=== PATIENT | female | born 1980 | race Caucasian/White ===

== ENCOUNTER 2018-04-05 11:05 | Emergency (ER) | payer OTHER ==
[~2018-04-05] VITALS: Ht 172.7 cm; Wt 60.8 kg
[2018-04-05] MEDS ORDERED: KEFLEX500 MG PO (11:46)
== END 2018-04-05 11:54 | disposition home or self-care (01) ==
LOC: ED 11:05
DX: N30.01 Acute cystitis with hematuria (principal)
CPT/HCPCS: 81001; 84703; 99283

== ENCOUNTER 2019-09-16 21:07 | Inpatient (IN) | payer OTHER ==
[~2019-09-16] VITALS: Ht 171.5 cm; Wt 77.0 kg
[~2019-09-16 21:07] MED LIST: KEFLEX500 MG PO
[2019-09-16] MEDS ORDERED: VITAFOL-OB+DHA1 EACH PO (23:52)
--- NOTE | 2019-09-17 09:47 | PR ---
[facility] [address] [facility] [place], [place] [address] Signed PP Progress Notes Datetime Report Generated by CPCar: 09/17/2019 09:47 SUBJECTIVE: [id number] Pain: Within normal limits Vital Signs: [id number] Vital Signs: Reviewed; Within Normal Limits EXAM: [id number] Cardiovascular: Not Done Respiratory: Not Done Abdomen/Uterus: Abnormal Lochia: Normal Vulva/Perineum: Not Done Breasts: Not Done CVA Tenderness: Not Done Extremities: Normal Incision: Not Applicable Progress: Normal Exam Comments: Fundus firm, NT @ U-1. H/H 12.2/34.6, WBC 10.4, plat 133k IMPRESSION/PLAN/PROCEDURES: [id number] Impression: Normal progression Plan: Continue present management Procedures: None Progress Notes: Doing well. Signing Physician: Laurence Decker MD Copies: ~ *Electronically Signed* 09/17/19 0947 LAURENCE DECKER MD PATIENT NAME: SENTHIL HILL PROGRESS NOTE DATE OF : 84 PHYSICIAN: LAURENCE DECKER MD RPT #: [id number] REPORT IS CONFIDENTIAL AND NOT TO BE RELEASED WITHOUT AUTHORIZATION
--- NOTE | 2019-09-18 08:30 | PR ---
[facility] [address] [facility] [place] [address] Signed PP Progress Notes Datetime Report Generated by CPCar: 09/18/2019 08:30 SUBJECTIVE: [id number] Pain: Within normal limits Vital Signs: [id number] Vital Signs: Reviewed; Within Normal Limits EXAM: [id number] Cardiovascular: Not Done Respiratory: Not Done Abdomen/Uterus: Abnormal Lochia: Normal Vulva/Perineum: Not Done Breasts: Not Done CVA Tenderness: Not Done Extremities: Normal Incision: Not Applicable Progress: Normal Exam Comments: Fundus firm, NT @ U-1. IMPRESSION/PLAN/PROCEDURES: [id number] Impression: Normal progression Plan: Discharge Procedures: None Progress Notes: Doing well. She is ready for D/C. Signing Physician: Laurence Decker MD Copies: ~ *Electronically Signed* 09/18/19 0830 LAURENCE DECKER MD PATIENT NAME: SENTHIL HILL PROGRESS NOTE DATE OF : 84 PHYSICIAN: LAURENCE DECKER MD RPT #: [id number] REPORT IS CONFIDENTIAL AND NOT TO BE RELEASED WITHOUT AUTHORIZATION
== END 2019-09-18 11:15 | disposition home or self-care (01) | DRG 807 ==
LOC: FBCO 21:07 → FBC 22:30
PROVIDERS: ADMIT Obstetrics & Gynecology
PROC: 10E0XZZ Delivery of Products of Conception, External Approach (ICD-10-PCS; principal; 2019-09-16)
PROC: 10907ZC Drainage of Amniotic Fluid, Therapeutic from Products of Conception, Via Natural or Artificial Opening (ICD-10-PCS; 2019-09-16)
DX: O62.3 Precipitate labor (principal); Z37.0 Single live birth; Z3A.38 38 weeks gestation of pregnancy; O69.81X0 Labor and delivery complicated by cord around neck, without compression, not applicable or unspecified; O69.2XX0 Labor and delivery complicated by other cord entanglement, with compression, not applicable or unspecified
CPT/HCPCS: 36415; 59025; 85027; 99213; A9270; J2590

== ENCOUNTER 2021-01-30 16:48 | Inpatient (IN) | payer OTHER ==
[~2021-01-30 16:48] MED LIST changes: +VITAFOL-OB+DHA1 EACH PO
--- NOTE | 2021-01-30 17:20 | NUR ---
RT COLLECTED COVID 19 SWAB WITH NO COMPLICATIONS. RT USED THE CEPHEID RAPID TEST THROUGH IN HOUSE LAB PER DR REQUEST AT THIS TIME.
--- NOTE | 2021-01-30 18:50 | PR ---
[facility] [address] [facility] [place], [place] [address] Signed Progress Notes IP Datetime Report Generated by CPN: 01/30/2021 18:50 PROGRESS NOTES: [id number] Impression: Normal Progression of Labor Procedures: Sterile Vag Exam Plan: Continue Present Management VITAL SIGNS: [id number] Vital Signs: Reviewed; Within Normal Limits EXAM: [id number] Dilatation: 4.5 Effacement: 75 Station: -2 Contractions: q 2 to 3 min MEMBRANES: [id number] Comments: Progressing. Will continue. FETUS A: [id number] FHR Baseline: 140 Variability: Minimal - >Undetectable to <=5bpm Accelerations: 15X15 Decelerations: None FHR Category: Category I Presentation: Vertex Comments on Fetus A: No evidence of metabolic acidosis FETUS B: [id number] Signing Physician: Laurence Decker MD Copies: ~ *Electronically Signed* 01/30/21 185 LAURENCE DECKER MD PATIENT NAME: SENTHIL HILL PROGRESS NOTE DATE OF : 84 PHYSICIAN: LAURENCE DECKER MD RPT #: [id number] REPORT IS CONFIDENTIAL AND NOT TO BE RELEASED WITHOUT AUTHORIZATION
--- NOTE | 2021-01-30 20:10 | PR ---
[facility] [address] [facility] [place], [place] [address] Signed Progress Notes IP Datetime Report Generated by CPN: 01/30/2021 20:10 PROGRESS NOTES: [id number] Impression: Normal Progression of Labor Procedures: Sterile Vag Exam Plan: Continue Present Management VITAL SIGNS: [id number] Vital Signs: Reviewed; Within Normal Limits EXAM: [id number] Dilatation: 5.0 Effacement: 90 Station: -2 Contractions: q 2 to 3 min MEMBRANES: [id number] Comments: Progressing. Will continue close observation of FHTs. FETUS A: [id number] FHR Baseline: 140 Variability: Minimal - >Undetectable to <=5bpm Accelerations: 15X15 Decelerations: None FHR Category: Category I Presentation: Vertex Comments on Fetus A: No evidence of metabolic acidosis FETUS B: [id number] Signing Physician: Laurence Decker MD Copies: ~ *Electronically Signed* 01/30/212009 LAURENCE DECKER MD PATIENT NAME: SERGIOSENTHIL LYNN PROGRESS NOTE DATE OF : 84 PHYSICIAN: LAURENCE DECKER MD RPT #: [id number] REPORT IS CONFIDENTIAL AND NOT TO BE RELEASED WITHOUT AUTHORIZATION
--- NOTE | 2021-01-31 10:30 | PR ---
[facility] [address] [facility] [place], [place] [address] Signed PP Progress Notes Datetime Report Generated by CPN: 01/31/2021 10:30 SUBJECTIVE: [id number] Pain: Within Normal Limits Nausea/Vomiting: Denies Vital Signs: [id number] Vital Signs: Reviewed; Within Normal Limits Cardiovascular: Not Done Respiratory: Not Done Abdomen/Uterus: Abnormal Lochia: Normal Vulva/Perineum: Not Done Breasts: Not Done CVA Tenderness: Not Done Extremities: Normal Incision: Not Applicable Progress: Normal Exam Comments: Fundus firm, NT @ U-2. H/H 12.3/35.8, WBC 8.7, plat 156k IMPRESSION/PLAN/PROCEDURES: [id number] Impression: Normal Progression Plan: Discharge Procedures: None Progress Notes: Doing well. She is ready for D/C tonight. Signing Physician: Laurence Decker MD Copies: ~ *Electronically Signed* 01/31/21 1030 LAURENCE DECKER MD PATIENT NAME: SENTHIL HILL PROGRESS NOTE DATE OF : 84 PHYSICIAN: LAURENCE DECKER MD RPT #: [id number] REPORT IS CONFIDENTIAL AND NOT TO BE RELEASED WITHOUT AUTHORIZATION
== END 2021-01-31 22:17 | disposition home or self-care (01) | DRG 807 ==
LOC: FBCO 16:48 → FBC 17:08
PROVIDERS: ADMIT Obstetrics & Gynecology; ATTEND Obstetrics & Gynecology
PROC: 10E0XZZ Delivery of Products of Conception, External Approach (ICD-10-PCS; principal; 2021-01-30)
PROC: 10907ZC Drainage of Amniotic Fluid, Therapeutic from Products of Conception, Via Natural or Artificial Opening (ICD-10-PCS; 2021-01-30)
DX: O80 Encounter for full-term uncomplicated delivery (principal); Z37.0 Single live birth; Z68.38 Body mass index [BMI] 38.0-38.9, adult; Z20.822 Contact with and (suspected) exposure to COVID-19
CPT/HCPCS: 85027; A9270; C9803; J2590; J7121; U0003

== ENCOUNTER 2024-12-08 07:00 | Day surgery (SDC) | payer OTHER ==
[~2024-12-08] VITALS: Ht 172.7 cm; Wt 54.0 kg
[~2024-12-08 07:00] MED LIST changes: +BIOTIN10000 MC1 PO; +BUPROPION XL450 MG PO; +IBLOOD GLUCOSE TEST STRIP 1 EA TEST VI PRN; +LACTATED RINGER'S 1,000 ML IV SCH; +LIDOCAINE HCL 1% 5 ML SDV INJ ONE; +PROBIOTIC1 EAC2 PO; +ZYRTEC10 MG PO
[2024-12-08 07:08] VITALS: BP 106/50
--- NOTE | 2024-12-08 07:25 | NUR ---
CODY COATES TO BE CALLED FOR [facility].
--- NOTE | 2024-12-08 07:58 | NUR ---
VISITED DURING SPIRITUAL CARE ROUNDS. PT EXHIBITED SIGNS OF ANXIETY, NERVOUSNESS. COMPUTER DISCOVERY TEACHER PROVIDED ANXIETY CONTAINMENT, FACILTIATED PROCESSING OF EMOTIONS, PROVIDED SUPPORTIVE PRESENCE, PRAYER. PT NOTICEABLY LESS ANXIOUS, EXPRESSED GRATITUDE, RELIEF.
[2024-12-08] MEDS ORDERED: LIDOCAINE HCL 2% 5 ML SDV ONE (08:19)
[2024-12-08 13:34] VITALS: BP 105/66
--- NOTE | 2024-12-08 13:43 | NUR ---
12/08/24 [facility]3 Tamanna Edmond 0913: PATIENT ARRIVED TO DAY SURGERY UNIT UNRESPONSIVE, BUT BREATHING SPONTANEOUSLY. 0925: PATIENT AWAKENED WITH VOICE AND TOUCH. DENIES PAIN. 40: DISCHARGE INSTRUCTIONS GIVEN TO PATIENT. PATIENT GETTING DRESSED. 0957: IV DC'D WNL. TIP INTACT. DRESSING APPLIED. PATIENT DISCHARGED TO HOME VIA WHEELCHAIR WITH MOTHER IN LAW.
--- NOTE | 2024-12-14 14:19 | PATH ---
[facility] [address] [place], [place] [address] Signed SPECIMEN(S): A ANTRUM BIOPSY SPECIMEN(S): B GE JUNCTION @ 41 SPECIMEN(S): C ESOPHAGEAL BIOPSY @ 40 SPECIMEN(S): D ESOPHAGEAL BIOPSY @ 35 SPECIMEN(S): E ESOPHAGEAL BIOPSY @ 30 SPECIMEN(S): F ESOPHAGEAL BIOPSY @ 25 SPECIMEN(S): G ESOPHAGEAL BIOPSY @ 20 SPECIMEN SOURCE: A. ANTRUM BIOPSY B. GE JUNCTION @ 41 C. ESOPHAGEAL BIOPSY @ 40 D. ESOPHAGEAL BIOPSY @ 35 E. ESOPHAGEAL BIOPSY @ 30 F. ESOPHAGEAL BIOPSY @ 25 G. ESOPHAGEAL BIOPSY @ 20 CLINICAL HISTORY: Dysphagia. A) rule out H. pylori. C-G) rule out eosinophilic esophagitis FINAL PATHOLOGIC DIAGNOSIS: A. Stomach, antrum, biopsy: - Gastric antral-type mucosa. - Negative for chronic, acute, and active inflammation. - No H. pylori-like organisms identified on routine HE-stained histologic sections. - Negative for intestinal metaplasia, dysplasia, and malignancy. B. Gastroesophageal junction at 41 cm, biopsy: - Gastroesophageal junctional-type mucosa. - Squamous component with no specific histopathologic abnormality. - Glandular component with mild to moderate chronic inflammation in the lamina propria. - No acute or eosinophilic inflammation identified. - Additional portions of acid secreting gastric mucosa, also with mild superficial chronic inflammation and no acute or active inflammation. - All components are negative for intestinal metaplasia, dysplasia, and malignancy. - No H. pylori-like organisms identified on routine HE-stained histologic sections. PATIENT NAME: SENTHIL HILL PATHOLOGY DATE OF : 84 REPORT #: [id number] PHYSICIAN: RADHA BAUMAN PCP: ARACELI LANGSTON PA-C REPORT IS CONFIDENTIAL AND NOT TO BE RELEASED WITHOUT AUTHORIZATION [facility] [address] [place], [place] [address] Signed C. Esophagus at 40 cm, biopsy: - Stratified squamous esophageal epithelium with slight congestion in the rete pegs vessels. - Negative for acute, chronic, and eosinophilic inflammation. - Negative for dysplasia and malignancy. D. Esophagus at 35 cm, biopsy - Stratified squamous esophageal mucosa with moderate congestion in the rete peg vessels. - Negative for acute, chronic, and eosinophilic inflammation. - Negative for dysplasia and malignancy. E. Esophagus at 30 cm, biopsy: - Stratified squamous esophageal mucosa with slight congestion in the rete peg vessels. - Negative for acute, chronic, and eosinophilic inflammation. - Negative for dysplasia and malignancy. F. Focus at 25 cm, biopsy: - Stratified squamous esophageal mucosa with mild congestion in the rete peg vessels. - Negative for acute, chronic, and eosinophilic inflammation. - Negative for dysplasia and malignancy. G. Esophagus at 20 cm, biopsy: - Stratified squamous esophageal mucosa with mild to moderate congestion in the rete peg vessels. - Negative for acute, chronic, and eosinophilic inflammation. - Negative for dysplasia and malignancy. SDL MICROSCOPIC EXAMINATION: Histologic sections of all submitted blocks are examined by light microscopy. These findings, together with the gross examination, support the pathologic diagnosis. GROSS DESCRIPTION: A. The specimen, labeled and designated "Meduri, antrum biopsy," is received in formalin and consists of two andrade soft tissue fragments, ranging from 0.3-0.4 cm. Entirely submitted in (A1). B. The specimen, labeled and designated "Meduri, GE junction at 41," is received in formalin and consists of five andrade soft tissue fragments, ranging from 0.3-0.7 cm. Entirely submitted in (B1). C. The specimen, labeled and designated "Meduri, esophageal biopsy at 40," is PATIENT NAME: SENTHIL HILL PATHOLOGY DATE OF : 84 REPORT #: [id number] PHYSICIAN: RADHA BAUMAN PCP: ARACELI LANGSTON PA-C REPORT IS CONFIDENTIAL AND NOT TO BE RELEASED WITHOUT AUTHORIZATION [facility] [address] [place], [place] [address] Signed received in formalin and consists of one andrade soft tissue fragment, 0.4 cm. Entirely submitted in (C1). D. The specimen, labeled and designated "Meduri, esophageal biopsy at 35," is received in formalin and consists of two andrade soft tissue fragments, ranging from 0.3-0.7 cm. Entirely submitted in (D1). E. The specimen, labeled and designated "Meduri, esophageal biopsy at 30," is received in formalin and consists of two andrade soft tissue fragments, ranging from 0.2-0.4 cm. Entirely submitted in (E1). F. The specimen, labeled and designated "Meduri, esophageal biopsy at 25," is received in formalin and consists of three andrade soft tissue fragments, ranging from 0.1-0.4 cm. Entirely submitted in (F1). G. The specimen, labeled and designated "Zoey, esophageal biopsy at 20," is received in formalin and consists of two andrade soft tissue fragments, ranging from 0.4-0.6 cm. Entirely submitted in (G1). AB (under the direct supervision of a pathologist) The Gross Description was prepared using a voice recognition system. The report was reviewed for accuracy; however, sound-alike word errors, addition and/or deletions may occur. If there are any questions about this report, please contact Client Services. ADDITIONAL NOTES: Immunohistochemical and/or in situ hybridization studies if performed in this case included appropriate positive controls that reacted as expected. This test was developed and its performance characteristics determined by [facility]. It has not been cleared or approved by the U.S. Food and Drug Administration. The FDA has determined that such clearance or approval is not necessary. This test is used for clinical purposes. It should not be regarded as investigational or for research. [facility] is certified under the Clinical Laboratory Improvement Amendments of 1988 (CLIA) as qualified to perform high complexity clinical laboratory testing. PERFORMING LABORATORY: Technical component was performed by [facility], [address] [place] [id number] (CLIA# [id number]). Professional interpretation was performed by [email or web address], [address] [place] [id number] (CLIA#: [id number]). Diagnostician: Tracy Montanez MD PATIENT NAME: SENTHIL HILL PATHOLOGY DATE OF : 84 REPORT #: [id number] PHYSICIAN: RADHA BAUMAN PCP: ARACELI LANGSTON PA-C REPORT IS CONFIDENTIAL AND NOT TO BE RELEASED WITHOUT AUTHORIZATION [address] [address] Signed Pathologist Electronically Signed 12/14/2024 Copies: ~ PATIENT NAME: SENTHIL HILL PATHOLOGY DATE OF : 84 REPORT #: [id number] PHYSICIAN: RADHA PATHOLOGY PCP: ARACELI LANGSTON PA-C REPORT IS CONFIDENTIAL AND NOT TO BE RELEASED WITHOUT AUTHORIZATION
== END 2024-12-08 09:57 | disposition home or self-care (01) ==
LOC: DS 07:00
PROVIDERS: ATTEND Surgery
PROC: 0DB68ZX Excision of Stomach, Via Natural or Artificial Opening Endoscopic, Diagnostic (ICD-10-PCS; 2024-12-08)
PROC: 0DB58ZX Excision of Esophagus, Via Natural or Artificial Opening Endoscopic, Diagnostic (ICD-10-PCS; principal; 2024-12-08 08:40)
DX: K21.00 Gastro-esophageal reflux disease with esophagitis, without bleeding (principal); K22.89 Other specified disease of esophagus; K29.50 Unspecified chronic gastritis without bleeding; Z79.899 Other long term (current) drug therapy
CPT/HCPCS: 00813; 84703; 88305; J2003; J2405; J2704; J7121